=== PATIENT | female | born 1925 | race African-American/Black ===

== ENCOUNTER 2016-04-29 22:13 | Inpatient (IN) | payer MEDICARE, OTHER, BC ==
--- NOTE | ~2016-04-29 | HP ---
History And Physical [id number] [place]. [address] NAME: ANIRUDH BUCHANAN : [birth year] STATUS : ADM IN [facility]#: [id number] AGE: 89 ADM/REG DATE : 04/29/16 MR#: [id number] REPORT SERV DATE: 04/30/16 DICTATED BY: KRYSTAL RED DATE: 04/30/16 REPORT STATUS : Draft TRANSCRIBED BY: ANDREZ DATE: 04/30/16 DATE OF ADMISSION: 04/29/2016 REASON FOR ADMISSION: PEA arrest, status post aspiration. CHIEF COMPLAINT: Unable to obtain. The patient's current medical status prohibit that. HISTORY OF PRESENT ILLNESS: The patient is an 89-year-old female with a past medical history of underlying COPD, hypertension, hyperlipidemia, depression, and dementia. She lives with her daughter. She is aware of the environment around her, but her dementia is quite significant. She cannot live alone. She was taking her pills and choked on her pills today. As she was not able to clear the pill, the patient collapsed. Family began the Heimlich maneuver. They called 911. This was successful in relieving the obstruction. By the time the EMS came to see her, the patient had very shallow respiratory rate. Daughter was conducting [id number] in an attempt to help breathe for her. She was transferred to the ambulance, and at that moment in time shortly thereafter, the patient lost her pulse. She underwent cardiopulmonary resuscitative efforts and was intubated. By the time of her arrival to the emergency room, the patient has no significant response to painful stimuli. Family is currently at the bedside. PAST MEDICAL HISTORY: COPD, hypertension, hyperlipidemia, depression, and dementia. MEDICATIONS: Home medications, as far as the daughter can remember, is Namenda, Aricept, lisinopril, and a depression medication. ALLERGIES: PENICILLIN. FAMILY HISTORY: Family denies having a family history of stroke. SOCIAL HISTORY: The patient currently lives with the daughter. She has a past use of some of smoking, but quit 27 years ago. No alcohol or illicit drug use. REVIEW OF SYSTEMS: Unable to obtain due to the patient's current medical status. PHYSICAL EXAMINATION: VITAL SIGNS: In the emergency room, the patient was afebrile, heart rate 85, blood pressure 83/41, oxygen saturation 100% on mechanical ventilation, respiratory rate 16, peak pressure on mechanical ventilation was 38. GENERAL: The patient was intubated. She is off sedation, not responding to commands. [place] Coma Scale of 3. PULMONARY: Mild expiratory wheezing. Otherwise, good air movement. CARDIAC: Regular rate. No murmurs. No carotid bruits. ABDOMEN: Soft, nontender, nondistended. EXTREMITIES: Peripheral pulses noted, however, they are quite faint. Extremity is cold to touch. No edema. History And Physical [address] [address] NAME: ANIRUDH BUCHANAN : [birth year] STATUS : ADM IN [facility]#: [id number] AGE: 89 ADM/REG DATE : 04/29/16 MR#: [id number] REPORT SERV DATE: 04/30/16 DICTATED BY: KRYSTAL RED DATE: 04/30/16 REPORT STATUS : Draft TRANSCRIBED BY: ANRDEZ DATE: 04/30/16 NEUROLOGIC: Significantly abnormal. Brittany comma scale is 3. The patient is not withdrawing to pain. Had no corneal reflex or gag. Possibly has some red reflex on one eye. LABORATORY EXAMINATION: Mild leukocytosis. Platelet count of 110. Sodium 150, chloride 111, lactate 9.8, creatinine 1.28. Negative troponin. Arterial blood gas shows a pH of 7.43, pCO2 of 32, pO2 of 95. RADIOLOGY: Chest x-ray: ET tube is in good position. No infiltrates noted. Possible EKG lead in the right hilum area. ASSESSMENT AND PLAN: Ms Buchanan is an 89-year-old female with a past medical history noted above, who is currently status post pulseless electrical activity arrest. She had return of spontaneous circulation after about 10 to 15 minutes of CPR in the ambulance. Family is at the bedside. 1. Status post pulseless electrical activity arrest: Currently, the patient has significant neurological abnormalities, concern of anoxic brain injury currently exist, we will have Neurology see the patient in the morning. We talked about this with the family, and at this moment in time, they would like her to be full code to give time for family to come and see her. Otherwise, we discussed hypothermia protocol, relative contraindication due to her age. However, her dementia and poor quality of life is concern. After discussing this with the family, we decided not to go forward with the hypothermia protocol. 2. Acute respiratory failure: At this moment in time, continue ventilator therapy. 3. Shock: At this moment in time, we will continue to give patient IV fluids. The patient is currently on Levophed, the emergency room is going to get a central line inserted. 4. Prophylaxis: We will provide. 5. Goals of care: The patient is currently full code. However, the family seem to show that this may change once the family is able to come see her and that they may change her code status after they have some time to process this. HFQ/MODL Krystal Red MD / [id number] CC: MD Donnell Hall M.D.
--- NOTE | ~2016-04-29 | CN ---
Consultation Report [facility] [address] [place]. [address] NAME: ANIRUDH WILKINS : [birth year] STATUS : ADM [facility]#: [id number] AGE: 89 ADM/REG DATE : 04/29/16 MR#: [id number] REPORT SERV DATE: 04/30/16 DICTATED BY: DATE: REPORT STATUS : Draft TRANSCRIBED BY: MODL DATE: 04/30/16 NEUROLOGY CONSULTATION DATE OF CONSULTATION: 04/30/2016 REASON FOR CONSULT: Anoxic encephalopathy. 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 The patient on 04/29/2016 was noted to try to swallow a pill, but unable to, half a pill go down, was subsequently noted to be suffocating on the pill. Family performed Heimlich maneuver, which successfully dislodged the pill, but the patient was noted to have very shallow breathing with the patient's daughter providing [id number]-my-[id number] breathing for her upon EMS arrival. Shortly before arrival to the hospital, the patient was noted to have PEA arrest and was resuscitated and intubated. The patient arrived at the emergency room without significant response to noxious stimulation. The patient have not underwent hypothermia protocol and was noted to have low body temperature upon arrival to the ICU, requiring warming blanket. The patient in addition briefly required pressor support, but is currently turned off. No prior history of recent illness was otherwise noted. PAST MEDICAL HISTORY: Significant for COPD, hypertension, hyperlipidemia, depression, and dementia. HOME MEDICATIONS: Consist of Namenda, Aricept, lisinopril, and depression medication. ALLERGIES: CONSIST OF PENICILLIN. FAMILY HISTORY: No significant family history of neurological disease. SOCIAL HISTORY: The patient does have a history of tobacco usage, but quit 27 years ago. No alcohol or illicit drug usage. REVIEW OF SYSTEMS: Unable to be obtained secondary to the patient's current mental status. PHYSICAL EXAMINATION: VITAL SIGNS: Overnight, the patient was noted to have vital signs with T-max of 97.2, heart rate of 78-105, respiration rate of 12, and blood pressure of 142-152 over 68-82. GENERAL: The patient is well developed, well nourished, in no acute distress. CARDIOVASCULAR: Regular rate and rhythm. No carotid bruits were otherwise auscultated. PULMONARY: Wheezing was auscultated in bilateral lung grey. Coarse breath sound was also auscultated in bilateral lung grey. NEUROLOGICAL: Generally, the patient is intubated, no sedation was on board. The patient Consultation Report [id number] [place]. [address] NAME: ANIRUDH WILKINS : [birth year] STATUS : ADM IN PAT#: [id number] AGE: 89 ADM/REG DATE : 04/29/16 MR#: [id number] REPORT SERV DATE: 04/30/16 DICTATED BY: DATE: REPORT STATUS : Draft TRANSCRIBED BY: MODL DATE: 04/30/16 does not wake up with the stimulation. No verbal response and no following commands. 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 Cranial nerves II to XII, pupil minimally responsive. At the time of evaluation, no blink to threat response, no corneal reflex. Horizontal eye movement was noted on oculocephalic maneuver. No grimace to noxious stimulation in bilateral jaw. No gag reflex was otherwise observed. At the time of evaluation, the patient demonstrated no grimace and the posturing all withdrawal to noxious stimulation applied in bilateral upper and bilateral lower extremities. No reflexes were obtained. Gait and cerebellar examination is unable to be performed secondary to patient's mental status. LABORATORY STUDIES: Demonstrated white blood cell count of 13.7, hemoglobin of 12.3, hematocrit of 40.7, and platelet count of 110. INR of 1.3. Chemistry panel, sodium of 150, potassium 4.0, chloride 110, bicarb of 24, lactate of 9.8, BUN of 23, creatinine of 1.28, glucose of 305, calcium of 8.3, magnesium 2.1. ABG demonstrated pH of 7.38, pCO2 of 44, PO2 of 86, bicarb 25.2, O2 saturation of 96.6. No neuro imaging was otherwise available. IMPRESSION AND PLAN: Anoxic brain injury/encephalopathy. The patient was noted to have no significant purposeful response to noxious stimulation. Currently, she is not on any sedation. In addition, stimulus-induced myoclonus was seen. Hypothermia protocol was not instituted secondary to myoclonus within twenty four hours of cardiac arrest. Prognosis is likely poor, especially with the patient not performing any purposeful movement or having any motor responses. We will perform CT scan as well as an EEG. We will start Keppra for control of myoclonus. RECOMMENDATION: 1. CT scan of the brain without contrast. 2. EEG. 3. Keppra 750 mg IV b.i.d. 4. We will hold sedation. 5. Prognosis is poor. CCH/MODL Shade Mullen MD / [id number] CC: MD Donnell Hall M.D.
--- NOTE | ~2016-04-29 | EEG ---
Electroencephalogram [address] [place]. [address] NAME: ANIRUDH WILKINS : [birth year] STATUS : ADM IN [facility]#: [id number] AGE: 89 ADM/REG DATE : 04/29/16 MR#: [id number] REPORT SERV DATE: 05/01/16 DICTATED BY: DATE: REPORT STATUS : Draft TRANSCRIBED BY: MODL DATE: 05/01/16 CLINICAL INDICATIONS: Anoxic brain injury. DESCRIPTION: This EEG was performed using 10/20 electrode placement system. During the EEG study, the patient was noted to have a myoclonus and myoclonic seizure seen throughout the EEG study. Between the myoclonus and myoclonic seizure, the patient was not noted to have significant brain activities. No significant response to photic stimulation. No driving response was seen. Hyperventilation was not performed secondary to intubation status. The patient was not noted to have any reactivity to the EEG study, lack of underlying brain activity was the most prominent seen in the transverse montage. During the EEG study, the patient remains in comatose state during the entirety of the EEG study. INTERPRETATION: This EEG study obtained entirely during the comatose state may be considered abnormal secondary to presence of myoclonus as well as myoclonic seizure. Otherwise, the patient was not noted to have any brain activity between the myoclonus and myoclonic seizure as noted most prominently during the transverse montage. In light of anoxic brain injury, lack of reactivity as well as brain activity and myoclonus seizure is likely surely is a poor prognosis. Clinical correlation was recommended. [facility]/MODL Shade Mullen MD / [id number] CC: MD Donnell Hall M.D.
--- NOTE | ~2016-04-29 | DS ---
Discharge Summary [address] [facility] [place]. [address] NAME: ANIRUDH WILKINS : [birth year] STATUS : DIS IN PAT#: [id number] AGE: 89 ADM/REG DATE : 04/29/16 MR#: [id number] REPORT SERV DATE: 05/19/16 DICTATED BY: TACOS ORTIZ DATE: 05/18/16 REPORT STATUS : Draft TRANSCRIBED BY: MODL DATE: 05/18/16 ADMISSION DATE: 04/29/2016 DISCHARGE DATE: 05/01/2016 DATE OF : 05/01/2016 at 1859 hours. This is an 89-year-old patient with a past medical history significant for COPD, hypertension, hyperlipidemia, depression, and dementia. The patient apparently aspirated on a pill fragment at home, 911 was called. Shortly after the ambulance arrived, the patient was receiving vcyrb-[id number] resuscitation by her daughter. While during transport, she lost her pulse, underwent cardiopulmonary resuscitative efforts and was intubated. The patient had no significant response to the painful stimuli upon arrival to the emergency room. She was after seen and examined by the critical care team in the ER. She was not thought to be a suitable candidate for hypothermia protocol. She had no reaction to any painful stimuli and was not sedated. Neurology, Dr. Mullen was consulted to see the patient for evaluation of anoxic encephalopathy. Her impression was that the patient indeed suffered anoxic brain injury with encephalopathy. The patient also has stimulus-induced myoclonus. Prognosis overall was extremely poor. Keppra was started for control of myoclonus. EEG was done on 05/01/2016. Myoclonus myoclonic seizure activity was noted during the EEG studies. Between the myoclonus and myoclonic seizures, no significant brain wave activity was noted. After discussion with the family about the patient's prognosis, the patient was made a DNR. Comfort measures were started. The patient at 1859 hours on the 05/01/2016. /ANDREZ Tacos Ortiz M.D. / [id number] CC: MD Donnell Hall M.D.
[2016-04-29 22:18] LABS: BASOPHILS 0.1 %; BASOPHILS ABSOLUTE 0.02 10/3/uL (0.0-0.16); EOSINOPHILS 2.4 %; EOSINOPHILS ABSOLUTE 0.33 10/3/uL (0.0-0.53); HEMATOCRIT 40.7 % (36.0-48.0); HEMOGLOBIN 12.3 g/dL (12.0-16.0); IMMATURE GRANULOCYTES 1.2 %; IMMATURE GRANULOCYTES ABSOLUTE 0.17 10/3/uL (0.0-0.11); LYMPHOCYTES 51.6 %; LYMPHOCYTES ABSOLUTE 7.04 10/3/uL (0.67-4.30); MEAN CORPUS HGB CONC 30.2 g/dL (32.0-36.0); MEAN CORPUSCULAR HEMOGLOB 32.8 pg (26.0-34.0); MEAN CORPUSCULAR VOLUME 108.5 fL (80-100); MEAN PLATELET VOLUME 11.5 fL (9.2-13.0); MONOCYTES 3.4 %; MONOCYTES ABSOLUTE 0.47 10/3/uL (0.21-1.20); NEUTROPHILS 41.3 %; NEUTROPHILS ABSOLUTE 5.62 10/3/uL (2.02-8.40); PLATELET COUNT 110 10/3/uL (150-400); RBC DISTRIBUTION WIDTH 13.3 % (12.0-16.0); RED CELL COUNT 3.75 10/6/uL (4.0-5.6); WHITE BLOOD CELLS 13.7 10/3/uL (4.5-10.5)
[2016-04-29 22:20] LABS: MANUAL DIFF NO %
[2016-04-29 22:32] LABS: INTERNATIONAL NORMAL RATI 1.3 UNITS (-); PARTIAL THROMBO TIME 28.6 SEC (22.5-37.2); PROTIME (NOT ORD) 15.8 SEC (12.0-14.5)
[2016-04-29 22:36] LABS: BUN (BLOOD UREA NITROGEN) 23 MG/DL (6-23); CALCIUM, SERUM 8.3 MG/DL (8.5-10.4); CHEST PAIN PROFILE TAT 0 Hrs 22 Mins; CHLORIDE, SERUM 110 MMOL/L (96-112); CO2 (CARBON DIOXIDE) 24 MMOL/L (24-34); CREATININE 1.28 MG/DL (0.55-1.02); GFR AFRICAN AMERICAN 43 ML/MIN (>=60); GFR NON AFRICAN AMERICAN 37 ML/MIN (>=60); GLUCOSE, SERUM 305 MG/DL (60-99); SODIUM, SERUM 150 MMOL/L (135-148); TROPONIN I 0.02 NG/ML (<0.05)
[2016-04-29] MEDS ORDERED: BROVANA15 MCG INH (23:26)
[2016-04-29] MEDS ORDERED: MONODOX100 MG PO (23:28)
[2016-04-29] MEDS ORDERED: ARICEPT10 PO (23:29)
[2016-04-29] MEDS ORDERED: LISINOPRIL40 MG PO (23:29)
[2016-04-29] MEDS ORDERED: NAMENXR14 PO (23:29)
[2016-04-29] MEDS ORDERED: AZO PO (23:30)
[2016-04-29] MEDS ORDERED: PROBIOTIC PO (23:30)
[2016-04-29] MEDS ORDERED: DEPAKOT250 PO (23:30)
[2016-04-29] MEDS ORDERED: ALEVE220 MG PO (23:31)
[2016-04-29] MEDS ORDERED: VITAMIN D PO (23:31)
[2016-04-29] MEDS ORDERED: X5 PO (23:31)
[2016-04-29] MEDS ORDERED: PRAVACHOL40 MG PO (23:32)
[2016-04-29] MEDS ORDERED: PRILOSEC40 MG PO (23:32)
[2016-04-29] MEDS ORDERED: VAGISIL V (23:33)
[2016-04-29] MEDS ORDERED: COREG6 PO (23:33)
[2016-04-29] MEDS ORDERED: RESCUE INHALER PO (23:33)
[2016-04-29] MEDS ORDERED: NEOSPORIN OINT15 GM TOP (23:34)
[2016-04-29] MEDS ORDERED: ZANTAC150 MG PO (23:36)
[2016-04-29 23:46] LABS: BE (BASE EXCESS) -2.7 MEQ/L (0 +/- 2.5); INSTRUMENT SERIAL # 8087; PCO2 (CO2 TENSION) 32 MMHG (35-45); PO2 (O2 TENSION) 95 MMHG (79-93); pH 7.43 (7.37-7.43)
[2016-04-29 23:47] LABS: ALLENS TEST Pos; CARBOXYHEMOGLOBIN 0.8 % (0-3); HCO3 (ACTUAL BICARBONATE) 20.7 MEQ/L (23-27); HEMOBLOGIN CONTENT 12.4 G/DL (12-16); METHEMOGLOBIN 0.1 % (0-3); O2 CONTENT 16.9 VOL% (18-24); OPERATOR ID 334499; SAMPLE Arterial; TIDAL VOLUME 500 ML
[2016-04-29 23:53] LABS: BAND NEUTROPHILS 12 %; EOSINOPHILS 5 %; EOSINOPHILS ABSOLUTE (CALC) 0.69 10/3/uL (0.0-0.53); ER DIFF TAT 1 Hrs 39 Mins; LYMPHOCYTES 44 %; LYMPHOCYTES ABSOLUTE (CALC) 6.03 10/3/uL (0.67-4.30); NEUTROPHILS ABSOLUTE (CALC) 6.99 10/3/uL (2.02-8.40); SEGMENTED NEUTROPHIL (0) 39 %; TOTAL NUCLEATED CELLS 100
[2016-04-29 23:54] LABS: MACROCYTES 1+ (5-10/OIF) (0-5/OIF); PLATELET ESTIMATE SLT DEC (ADEQUATE)
[2016-04-30 04:19] LABS: BE (BASE EXCESS) -0.2 MEQ/L (0 +/- 2.5); CARBOXYHEMOGLOBIN 1.4 % (0-3); HCO3 (ACTUAL BICARBONATE) 25.2 MEQ/L (23-27); HEMOBLOGIN CONTENT 13.3 G/DL (12-16); INSTRUMENT SERIAL # 8087; METHEMOGLOBIN 0.2 % (0-3); O2 CONTENT 17.9 VOL% (18-24); OPERATOR ID 334499; PCO2 (CO2 TENSION) 44 MMHG (35-45); PO2 (O2 TENSION) 86 MMHG (79-93); SAMPLE Arterial; pH 7.38 (7.37-7.43)
[2016-04-30 04:20] LABS: TIDAL VOLUME 500 ML
[2016-04-30 08:36] LABS: HEMATOCRIT 40.3 % (36.0-48.0); HEMOGLOBIN 12.9 g/dL (12.0-16.0); MEAN CORPUSCULAR HEMOGLOB 32.4 pg (26.0-34.0); MEAN PLATELET VOLUME 11.2 fL (9.2-13.0); PLATELET COUNT 116 10/3/uL (150-400); RBC DISTRIBUTION WIDTH 13.1 % (12.0-16.0); RED CELL COUNT 3.98 10/6/uL (4.0-5.6)
[2016-04-30 08:41] LABS: MANUAL DIFF YES %; MEAN CORPUSCULAR VOLUME 101.3 fL (80-100); WHITE BLOOD CELLS 3.5 10/3/uL (4.5-10.5)
[2016-04-30 08:48] LABS: BUN (BLOOD UREA NITROGEN) 30 MG/DL (6-23); CALCIUM, SERUM 8.4 MG/DL (8.5-10.4); CHLORIDE, SERUM 114 MMOL/L (96-112); CO2 (CARBON DIOXIDE) 26 MMOL/L (24-34); CREATININE 1.21 MG/DL (0.55-1.02); GFR AFRICAN AMERICAN 46 ML/MIN (>=60); GFR NON AFRICAN AMERICAN 40 ML/MIN (>=60); GLUCOSE, SERUM 267 MG/DL (60-99); POTASSIUM, SERUM 3.3 MMOL/L (3.5-5.3); SODIUM, SERUM 151 MMOL/L (135-148)
[2016-04-30 10:35] LABS: BAND NEUTROPHILS 51 %; EOSINOPHILS 1 %; EOSINOPHILS ABSOLUTE (CALC) 0.04 10/3/uL (0.0-0.53); LYMPHOCYTES 17 %; MACROCYTES 1+ (5-10/OIF) (0-5/OIF); MONOCYTES 6 %; MONOCYTES ABSOLUTE (CALC) 0.21 10/3/uL (0.21-1.20); NEUTROPHILS ABSOLUTE (CALC) 2.66 10/3/uL (2.02-8.40); PLATELET ESTIMATE SLT DEC (ADEQUATE); SEGMENTED NEUTROPHIL (0) 25 %; TOTAL NUCLEATED CELLS 100
[2016-04-30 10:36] LABS: HELMET CELLS OCC (0-2/OIF); POLYCHROMASIA 1+ (2-5/OIF) (0-1/OIF); TEARDROP SHAPED RBCS OCC (0-2/OIF); TOXIC GRANULATION 1+; VACUOLATED NEUTROPHILES OCC
[2016-05-01 07:41] LABS: BE (BASE EXCESS) -0.7 MEQ/L (0 +/- 2.5); CARBOXYHEMOGLOBIN 0.2 % (0-3); HCO3 (ACTUAL BICARBONATE) 30.4 MEQ/L (23-27); HEMOBLOGIN CONTENT 11.7 G/DL (12-16); INSTRUMENT SERIAL # 8087; METHEMOGLOBIN 0.2 % (0-3); O2 CONTENT 17.6 VOL% (18-24); OPERATOR ID 17537; PCO2 (CO2 TENSION) 92 MMHG (35-45); PO2 (O2 TENSION) 476 MMHG (79-93); SAMPLE Arterial; pH 7.14 (7.37-7.43)
== END 2016-05-01 20:37 | disposition expired | DRG 208 ==
LOC: ER 22:13 → MIC 23:28
PROVIDERS: Emergency Medicine; Internal Medicine Critical Care Medicine
PROC: 5A1945Z Respiratory Ventilation, 24-96 Consecutive Hours (ICD-10-PCS; principal; 2016-04-29)
DX: J96.01 Acute respiratory failure with hypoxia (principal); I46.9 Cardiac arrest, cause unspecified; G93.1 Anoxic brain damage, not elsewhere classified; R57.9 Shock, unspecified; J44.9 Chronic obstructive pulmonary disease, unspecified; I10 Essential (primary) hypertension; E78.5 Hyperlipidemia, unspecified; F32.9 Major depressive disorder, single episode, unspecified; F03.90 Unspecified dementia, unspecified severity, without behavioral disturbance, psychotic disturbance, mood disturbance, and anxiety; Z79.899 Other long term (current) drug therapy; Z88.0 Allergy status to penicillin; Z87.891 Personal history of nicotine dependence
CPT/HCPCS: 31720; 36600; 70450; 71010; 74000; 80048; 82533; 82805; 82962; 83605; 83735; 84484; 85025; 85610; 85730; 87070; 87205; 87493; 87493-59; 87641; 92950; 93005; 94002; 94003; 94640; 95816; 99291; A9270-GY; C9113; J1953; J2370; J3010